=== PATIENT | female | born 1985 | race Caucasian/White ===

== ENCOUNTER 2020-11-08 15:33 | Emergency (ER) | payer MEDICARE, MEDICAID ==
--- NOTE | 2020-11-08 16:04 | EDM.PDOC ---
ED HPI GENERAL MEDICAL PROBLEM - General Chief Complaint: Gastrointestinal Problem Stated Complaint: SICK Time Seen by Provider: 11/08/20 16:04 Source of Information: Reports: Patient - History of Present Illness INITIAL COMMENTS - FREE TEXT/NARRATIVE: Betty, 35-year-old female, presents by private vehicle accompanied by her mother as she received a phone call from her clinic to present for Covid work-up secondary of symptoms. She was seen in the clinic this morning per Vanessa Gillis at which time lab work was obtained comprehensive panel and other factors for her psychiatric services. Unfortunately no CBC was obtained at that time. No UA was obtained at that time. She has been experiencing dizziness weakness diarrhea for the past week and underwent evaluation this morning with no note available other than discharge instructions to present for emergency department at 2:34 this afternoon. She had ongoing lab work that is in process at the time of her visit here for lithium level and Chlamydia via urine. She has been experiencing some hip pain. Ongoing symptoms were not acknowledged by provider this morning at her clinic visit that there is no documentation for. On presentation she complains of mild nausea, headache, has seen slight elevation in her blood pressure with continuing loose stools last 1 occurring at 1300 hrs. today. Denies any pain, cough, shortness of breath or other contributing factors. States her back pain is in good control at this time since the placement of a stimulator 1 year ago. Duration: Getting Worse - Related Data Allergies Allergy/AdvReac Type Severity Reaction Status Date / Time No Known Drug Allergies Allergy Cannot Verified 11/08/20 17:29 Remember Home Meds: Home Meds Albuterol [Proventil HFA] 1 - 2 puff INH Q4H PRN 09/16/15 [History] Cetirizine [ZyrTEC] 10 mg PO DAILY PRN 09/16/15 [History] Docusate Sodium [Colace] 100 mg PO BID 09/16/15 [History] Fluticasone Propionate [Flonase] 1 spray NASBOTH DAILY 09/16/15 [History] Hydrocodone/Acetaminophen [[place] 5-325] 5 - 325 mg PO Q4HR PRN 09/16/15 [History] Ibuprofen 800 mg PO Q8HR 09/16/15 [History] QUEtiapine Fumarate [Seroquel] 500 mg PO BEDTIME 09/16/15 [History] Ranitidine [Zantac] 150 mg PO DAILY 09/16/15 [History] Venlafaxine [Effexor XR] 150 mg PO BEDTIME 09/16/15 [History] Xhydrocortisone 1% Soln 1 spray TOP DAILY PRN 09/16/15 [History] Past Medical History HEENT History: Reports: Other (See Below) Other HEENT History: glasses Respiratory History: Reports: Asthma [employer] History: Reports: : 4 Para: 4 Musculoskeletal History: Reports: Back Pain, Chronic Psychiatric History: Reports: Anxiety, Bipolar, Depression Endocrine/Metabolic History: Reports: Obesity/BMI 30+ Oncologic (Cancer) History: Reports: None Dermatologic History: Reports: None - Infectious Disease History Infectious Disease History: Reports: Chicken Pox - Past Surgical History HEENT Surgical History: Reports: Myringotomy w Tube(s), Tonsillectomy Female Surgical History: Reports: Section Neurological Surgical History: Reports: Lumbar Spine Other Surgical History Comment: Spinal stimulator placement 1 year ago - Past Imaging History Past Imaging History: Reports: CAT Scan, MRI, Xray Social & Family History - Family History Family Medical History: No Pertinent Family History HEENT: Reports: Glaucoma Cardiac: Reports: Bypass, Heart Failure Respiratory: Reports: Asthma Musculoskeletal: Reports: None Psychiatric: Reports: Anxiety, Depression Endocrine/Metabolic: Reports: Diabetes, type II - Tobacco Use Tobacco Use Status *Q: Former Tobacco User - Alcohol Use Alcohol Use History: No - Recreational Drug Use Recreational Drug Use: Yes Drug Use in Last 12 Months: No Recreational Drug Use Frequency: Not Used In Over 6 Months ED ROS GENERAL - Review of Systems Review Of Systems: Comprehensive ROS is negative, except as noted in HPI. ED EXAM, GENERAL - Physical Exam Exam: See Below Free Text/Narrative:: Alert, oriented, in mild distress. HEENT is negative discharge or deformity. Oral membranes are pink and moist. PERRLA no icterus no injection. No cyanosis nor pallor is noted. There is mild cerumen in the canals with no evidence of infection of the tympanic membranes. Neck is soft supple no rigidity no lymphadenopathy. Thorax is clear throughout with no wheezes nor crackles. Cardiac is S1-S2 I do not appreciate any ectopic beats with radial pulse correlating and there is no appreciated murmur. Abdomen is rotund soft bowel sounds are hyperactive there is no tenderness to palpation. Motion of the extremities is intact with trace edema to the lower extremities which she states is her chronic nature. rectal breast deferred she underwent pelvic discussion/evaluation secondary of hip pain with laboratory work-up this morning at the clinic. #1 Interpretation EKG Date: 11/08/20 Time: 16:36 Rhythm: NSR Rate (Beats/Min): 74 Webb: Normal P-Wave: Present QRS: Normal ST-T: Normal QT: Normal Comparison: NA - No Prior EKG Course - Vital Signs Last Recorded V/S: Last Vital Signs Temp 96.3 F L 11/08/20 15:50 Pulse 77 11/08/20 17:35 Resp 18 11/08/20 17:35 BP 178/103 H 11/08/20 17:35 Pulse Ox 97 11/08/20 17:35 - Orders/Labs/Meds Orders: Active Orders 24 hr Category Date Time Status EKG 12 Lead [EK] Stat Ther 11/08/20 16:26 Ordered Labs: Laboratory Tests 11/08/20 11/08/20 11/08/20 Range/Units 15:49 16:15 17:20 WBC 12.70 H (5.00-10.00) 10^3/uL RBC 4.81 (3.80-5.50) 10^6/uL Hgb 14.4 (12.0-16.0) g/dL Hct 43.8 (37.0-47.0) % MCV 91.1 D (82.0-92.0) fL MCH 29.9 (27.0-31.0) pg MCHC 32.9 (32.0-36.0) g/dL RDW 12.7 (11.5-14.5) % Plt Count 349 (150-400) 10^3/uL MPV 10.1 (7.4-10.4) fL Immature Gran % (Auto) 0.2 (0.0-5.0) % Neut % (Auto) 71.9 H (50.0-70.0) % Lymph % (Auto) 19.3 L (20.0-40.0) % [place] % (Auto) 5.1 (2.0-8.0) % Eos % (Auto) 2.9 (1.0-3.0) % Baso % (Auto) 0.6 (0.0-1.0) % Neut # (Auto) 9.13 H (2.50-7.00) 10^3/uL Lymph # (Auto) 2.45 (1.00-4.00) 10^3/uL [place] # (Auto) 0.65 (0.10-0.80) 10^3/uL Eos # (Auto) 0.37 H (0.10-0.30) 10^3/uL Baso # (Auto) 0.07 (0.00-0.10) 10^3/uL Immature Gran # (Auto) 0.03 (0.00-0.50) 10^3/uL Specimen Type Urincc Urine Color Yellow (YELLOW) Urine Appearance Clear (CLEAR) Urine pH 5.5 (5.0-9.0) Ur Specific Aubrey >= 1.030 (1.005-1.030) Urine Protein Negative (NEGATIVE) mg/dL Urine Glucose (UA) Negative (NEGATIVE) mg/dL Urine Ketones Negative (NEGATIVE) mg/dL Urine Occult Blood Negative (NEGATIVE) Urine Nitrite Negative (NEGATIVE) Urine Bilirubin Negative (NEGATIVE) Urine Urobilinogen 0.2 (0.2-1.0) E.U./dL Ur Leukocyte Esterase Negative (NEGATIVE) SARS CoV-2 RNA Rapid MAO Negative (NEGATIVE) Meds: Medications Discontinued Medications Generic Name Dose Route Start Last Admin Trade Name Freq PRN Reason Stop Dose Admin Sodium Chloride 1,000 mls @ 999 mls/hr 11/08/20 16:17 Normal Saline IV 11/08/20 17:17 .BOLUS ONE Ketorolac Tromethamine 30 mg 11/08/20 16:17 Ketorolac 30 Mg/Ml Sdv IVPUSH 11/08/20 16:18 ONETIME ONE Ondansetron HCl 8 mg 11/08/20 16:17 Ondansetron 4 Mg/2 Ml Sdv IVPUSH 11/08/20 16:18 ONETIME ONE - Re-Assessments/Exams Free Text/Narrative Re-Assessment/Exam: 11/08/20 17:24 Comprehensive panel obtained at [facility] earlier in the day all reflects normal values. A1c was done revealing 4.8. Cholesterol panel total of 232, triglycerides 93, HDL 66, LDL 147. Chlamydia and lithium levels are still pending in the [facility] system. Free Text/Narrative Re-Assessment/Exam: 11/08/20 17:56 Both nausea and headache are completely resolved and there has been no stooling since arrival. Last loose stool was at 1300 hrs. today. No abdominal pain or discomfort is noted. Departure - Departure Time of Disposition: 17:53 Disposition: Home, Self-Care 01 Condition: Good Clinical Impression: Weakness, Diarrhea Headache Qualifiers: Headache type: unspecified Headache chronicity pattern: acute headache Intractability: not intractable Qualified Code(s): R51.9 - Headache, unspecified - Discharge Information *PRESCRIPTION DRUG MONITORING PROGRAM REVIEWED*: Not Applicable *COPY OF PRESCRIPTION DRUG MONITORING REPORT IN PATIENT ARIELLA: Not Applicable Instructions: Weakness, [id number], Diarrhea, Adult, [id number] Referrals: Mary Gillis PA-C [Primary Care Provider] - Hien Clifford MD [Physician] - Forms: ED Department Discharge Additional Instructions: Go home and rest. Advance your diet as tolerated. You should have banana, rice, apples, dry toast, and yogurt to help with the diarrhea. Acidophilus or lactobacillus tablets may be used to enhance gut metabolism as well. Continue all your medications as directed. Gabapentin should help with your sleep. The remainder of the [facility] test should finalized by tomorrow and your clinic should be in contact with you to give you those results. Make sure you sip on fluids avoiding the red and blue colors of the electrolyte fluids such as Gatorade or Powerade in the event you would require additional evaluation. You may consider colonoscopy if intermittent continued diarrhea would exist as well as the possibility of upper GI based on some of the acid-like symptoms you had experienced in the past. Contact your clinic in the morning to rearrange follow-up return to the emergency department if symptoms become severe. Sepsis Event Note (ED) - Focused Exam Vital Signs: Vital Signs Temp Pulse Resp BP Pulse Ox 11/08/20 17:30 75 16 153/90 H 97 11/08/20 17:15 81 18 150/93 H 98 11/08/20 17:00 78 16 149/86 H 96 11/08/20 16:45 86 17 173/95 H 96 11/08/20 16:30 79 16 172/101 H 97 11/08/20 16:15 77 18 178/103 H 97 11/08/20 16:00 81 16 155/100 H 95 11/08/20 15:50 96.3 F L 81 171/118 H 98 11/08/20 15:45 80 18 148/94 H 97 - Problem List & Annotations (1) Weakness SNOMED Code(s): 93966429 Code(s): R53.1 - WEAKNESS Status: Acute Priority: High Current Visit: Yes (2) Diarrhea SNOMED Code(s): 37010435 Code(s): R19.7 - DIARRHEA, UNSPECIFIED Status: Acute Priority: High Current Visit: Yes (3) Headache SNOMED Code(s): 60266494 Code(s): R51.9 - HEADACHE, UNSPECIFIED Status: Acute Priority: High Current Visit: Yes Qualifiers: Headache type: unspecified Headache chronicity pattern: acute headache Intractability: not intractable Qualified Code(s): R51.9 - Headache, unspecified (4) COVID-19 ruled out by laboratory testing SNOMED Code(s): 547557322652221073, 096260701886644845 Code(s): Z20.822 - CONTACT WITH AND (SUSPECTED) EXPOSURE TO COVID-19 Status: Ruled-out Priority: High Current Visit: Yes - Problem List Review Problem List Initiated/Reviewed/Updated: Yes - My Orders Last 24 Hours: My Active Orders 11/08/20 16:26 EKG 12 Lead [EK] Stat - Assessment/Plan Last 24 Hours: My Active Orders 11/08/20 16:26 EKG 12 Lead [EK] Stat Plan: Go home and rest. Advance your diet as tolerated. You should have banana, rice, apples, dry toast, and yogurt to help with the diarrhea. Acidophilus or lactobacillus tablets may be used to enhance gut metabolism as well. Continue all your medications as directed. Gabapentin should help with your sleep. The remainder of the [facility] test should finalized by tomorrow and your clinic should be in contact with you to give you those results. Make sure you sip on fluids avoiding the red and blue colors of the electrolyte fluids such as Gatorade or Powerade in the event you would require additional evaluation. You may consider colonoscopy if intermittent continued diarrhea would exist as well as the possibility of upper GI based on some of the acid-like symptoms you had experienced in the past. Contact your clinic in the morning to rearrange follow-up return to the emergency department if symptoms become severe.
[2020-11-08] MEDS ORDERED: Ketorolac 30 MG/ML SDV IVPUSH ONE (16:17)
[2020-11-08] MEDS ORDERED: Ondansetron 4 MG/2 ML SDV IVPUSH ONE (16:17)
[2020-11-08] MEDS ORDERED: Sodium Chloride 0.9% 1,000 ML IV ONE (16:17)
--- NOTE | 2020-11-08 17:03 | CR ---
[id number] RAD/RAD Chest PA And Lateral EXAM: RAD Chest PA And Lateral INDICATION: ELEVATED WBC MALAISE. COMPARISON: June 04, 2006. DISCUSSION: Cardiomediastinal silhouette is normal in size and contour. No infiltrate, effusion, pneumothorax, or edema. Spinal stimulator wires identified. IMPRESSION: No acute cardiopulmonary abnormality. Roland Salvador DO 11/08/20 [id number] Thank you for allowing us to participate in the care of your patient.
[2020-11-08 17:35] VITALS: BP 178/103; PULSE 77
== END 2020-11-08 18:20 | disposition home or self-care (01) ==
LOC: KA.ED 15:33
DX: R53.1 Weakness (principal); R19.7 Diarrhea, unspecified; R51.9 Headache, unspecified; E66.9 Obesity, unspecified; Z68.41 Body mass index [BMI] 40.0-44.9, adult; Z87.891 Personal history of nicotine dependence; Z20.822 Contact with and (suspected) exposure to COVID-19; Z79.899 Other long term (current) drug therapy
CPT/HCPCS: 36415; 71046; 81003; 85025; 96374; 96375; 99285; J1885; J2405; J7030; U0002; 93005; 99284

== ENCOUNTER 2021-10-02 15:45 | Emergency (ER) | payer MEDICARE, MEDICAID ==
[2021-10-02] MEDS ORDERED: HYDROmorphone 1 MG/ML Syringe IVPUSH ONE (15:48)
[2021-10-02 16:06] VITALS: BP 123/77; PULSE 91
[2021-10-02] MEDS ORDERED: Lidocaine 1% with EPINEPHrine 1:100,000 10 ML MDV ONE (16:22)
[2021-10-02] MEDS ORDERED: Lidocaine 1% with EPINEPHrine 1:100,000 10 ML MDV INJECT ONE (16:30)
[2021-10-02] MEDS ORDERED: Bacitracin/Neomycin/Polymyxin B Oint 0.9 GM U/D Packet ONE (17:23)
== END 2021-10-02 17:40 | disposition home or self-care (01) ==
LOC: KA.ED 15:45
DX: S66.822A Laceration of other specified muscles, fascia and tendons at wrist and hand level, left hand, initial encounter (principal); E78.00 Pure hypercholesterolemia, unspecified; I10 Essential (primary) hypertension; E66.9 Obesity, unspecified; Z68.41 Body mass index [BMI] 40.0-44.9, adult; Z79.899 Other long term (current) drug therapy; W26.8XXA Contact with other sharp object(s), not elsewhere classified, initial encounter
CPT/HCPCS: 12004; 73130-LT; 96374; 99283-25; J1170